=== PATIENT | male | born 1985 | race Caucasian/White ===

== ENCOUNTER 2025-01-09 09:33 | Outpatient (CLI) | payer OTHER | END 2025-01-09 09:34 | disposition home or self-care (01) | LOC: SCSMRI 09:33 | PROVIDERS: ATTEND Family Medicine Sports Medicine | DX: M25.461 Effusion, right knee (principal); S76.111A Strain of right quadriceps muscle, fascia and tendon, initial encounter; M22.8X1 Other disorders of patella, right knee ==